=== PATIENT | female | born 2000 | race Caucasian/White ===

== ENCOUNTER 2021-08-10 10:17 | Emergency (ER) | payer MEDICAID, SELFPAY ==
[2021-08-10 10:19] VITALS: BP 126/100; PULSE 92; RESP 20; TEMP 37.1; O2SAT 97; BMI 39.4
--- NOTE | 2021-08-10 10:59 | XR_ITS ---
WS: [id number] Chest with right rib detail, 08/10/2021 Clinical Data: fall, pain Comparison: PA and lateral chest, 04/25/2011. Findings: The lungs show no nodules, masses, or effusions. The heart is normal. No pneumonia or pneumothorax is seen. The ribs are intact. No rib fractures seen. No subcutaneous emphysema is present. XR/XR ribs RT mn 3V w CXR1V [id number] Impression: Negative chest with right rib detail.
--- NOTE | 2021-08-10 10:59 | XR_ITS ---
WS: [id number] Right foot, 3 views, 08/10/2021 Clinical Data: trauma Comparison: None. Findings: No fractures or dislocations are seen. No bone destruction or erosion is noted. The joint spaces and soft tissues are normal. XR/XR foot RT min 3V* [id number] Impression: Negative right foot.
--- NOTE | 2021-08-10 10:59 | XR_ITS ---
WS: [id number] Right ankle, 3 views, 08/10/2021 Clinical Data: trauma Comparison: None. Findings: No fractures or dislocations are seen. The ankle mortise is normal. The talus and calcaneus are unrem arkable. There is soft tissue swelling over the lateral malleolus. XR/XR ankle RT min 3V* [id number] Impression: 1. Soft tissue swelling over right lateral malleolus. 2. Negative for fracture or dislocation.
--- NOTE | 2021-08-10 11:00 | ED_ITS ---
HPI - Fall General: Chief Complaint: Extremity Injury, Lower Stated Complaint: FALL/ ANKLE PAIN/ RIB PAIN Time Seen by Provider: 08/10/21 10:27 Source: patient Mode of arrival: EMS Limitations: no limitations History of Present Illness: Patient is a 21-year-old female who presents to ED today with a main complaint of a right ankle/foot injury. Patient tells me just prior to arrival she was going down a set of camper steps when she slipped and fell. Patient states she twisted her right ankle when she fell. She also thinks maybe she landed onto her right ribs because she is having some mild pain to her right lower ribs-worse with deep inhalation. She is not complaining of shortness of breath or difficulty breathing. Patient has not been ambulatory since the fall secondary to pain in her right ankle. She has no other injuries or complaints at this time. Patient denies striking her head or LOC. No neck or back pain. MD complaint: fall Onset (ago): hour(s) Fall from: down stairs (#) Fall witnessed: yes, by family Place fall occurred: home Loss of consciousness: None Prolonged down time: no Symptoms prior to fall: none Context: tripped/slipped Location of injury - extremities: Right: ankle and foot Associated symptoms-after fall: Reports chest pain (R rib pain); Denies abdominal pain, headache(s), lightheadedness or neck pain Review of Systems Eyes: Denies: change in vision or blurry vision Card: Reports: chest pain (R rib pain); Denies: palpitations, irregular heart rhythm, edema, lightheadedness, syncope or pre-syncope Resp: Denies: dyspnea GI: Denies: abdominal pain Musc: Reports: joint pain (R ankle/foot), joint swelling (R ankle/foot) and limited range of motion; Denies: neck pain or back pain Neuro: Denies: headache(s), numbness in extremities, weakness in extremities, sensory changes or dizziness PENDING SALE TO [facility] ED PFSH: Medical History (Updated 08/10/21 @ 11:46 by ALESSANDRA Camacho) Anxiety and depression Family History Mother Diabetes Father Diabetes Social History Alcohol intake: never Lives independently: Yes Household members: family Housing: House Marital status: Single History of recent travel: No Female Reproductive History: Para: 0 Physical Exam Const: COMMON NORMALS: no acute distress, patient oriented x3, no limitations and alert GENERAL APPEARANCE: cooperative NUTRITIONAL APPEARANCE: obese ORIENTATION/CONSCIOUSNESS: Yes awake, Yes oriented to person, Yes oriented to place and Yes oriented to time HENMT: COMMON NORMALS: normocephalic and atraumatic HEAD & SCALP: normal to inspection, normocephalic and atraumatic FACE & SINUS: normal facial exam Eye: GENERAL EYE: appearance normal, both eyes and all related structures Neck/C-Spine: COMMON NORMALS: full ROM CERVICAL SPINE: Yes cervical ROM normal, No pain with cervical ROM, No Cervical spine tenderness, No step off deformity and No Paracervical muscle tenderness Chest: COMMONS NORMALS: normal inspection of the chest OTHER: mild pain to R lower anteriolateral ribs; no crepitus; normal breath sounds Resp: COMMON NORMALS: normal respiratory effort and clear to auscultation bi laterally EFFORT & INSPECTION: Yes able to speak in complete sentences AUSCULTATION: clear to auscultation bilaterally Cardio: COMMON NORMALS: regular rate and regular rhythm RATE: regular rate RHYTHM: regular rhythm GI: COMMON NORMALS: Normal to inspection, nondistended, normoactive bowel sounds present, Soft to palpation, non-tender, No hepatosplenomegaly present and no masses PALPATION: Yes Soft to palpation and Yes No hepatosplenomegaly present Back/Pelvis: COMMON NORMALS: thoracic and lumbar spine normal to inspection, no thoracic nor lumbar tenderness and thoraco-lumbar ROM normal Extremity: GENERAL: Yes normal exam except as noted RIGHT LOWER EXTREMITY: Yes foot & digits (main tenderness and swelling located to lateral ankle) Right ankle: Yes neurovascular exam (normal) and Yes foot & digits (swelling noted to dorsal lateral foot) Right foot and digits: Yes neurovascular exam (normal) Neuro: BOLIVAR COMA SCALE: document GCS findings [place] coma scale eye opening: Spontaneous [place] coma scale verbal response: Orientated [place] coma scale motor response: Obey commands [place] coma scale total score: 15 COMMON NORMALS: patient oriented x3, moves all extremities, no focal motor deficits and no sensory deficits noted SENSORIUM/ORIENTATION: Yes alert, Yes oriented to person, Yes oriented to place and Yes oriented to time Skin: COMMON NORMALS: no rashes or lesions noted GENERAL SKIN EXAM: no rashes or lesions noted TRAUMA: no lacerations or abrasions Course Vital Signs: Vital signs: Vital Signs Temperature 98.7 F 08/10/21 10:19 Pulse Rate 92 08/10/21 10:19 Respiratory Rate 20 H 08/10/21 10:19 Blood Pressure 126/100 08/10/21 10:19 Pulse Oximetry 97 08/10/21 10:19 MDM - Fall Medical Decision Making XR R foot/ankle and CXR/R ribs negative. Recommend RICE therapy. Will give KIARA/crutches with instructions for weight bearing as tolerated. Follow up with PCP in 1-2 weeks for continued pain. Lab Data Radiology Impressions Ankle X-Ray 08/10/21 10:59 Impression: 1. Soft tissue swelling over right lateral malleolus. 2. Negative for fracture or dislocation. Foot X-Ray 08/10/21 10:59 Impression: Negative right foot. Ribs X-Ray 08/10/21 10:59 Impression: Negative chest with right rib detail. Discharge Plan Discharge Patient Disposition: Home Clinical Impression: Right ankle sprain Qualifiers: Encounter type: initial encounter Involved ligament of ankle: unspecified ligament Qualified Code(s): S93.401A - Sprain of unspecified ligament of right ankle, initial encounter Contusion of rib on right side Qualifiers: Encounter type: initial encounter Qualified Code(s): S20.211A - Contusion of right front wall of thorax, initial encounter Condition: Stable Prescriptions: No Action ketoconazole 2 % cream 1 applic TOPICAL BID 14 Days Qty: 15 2RF norethindrone-ethin estradiol 1-35 mg-mcg tablet 1 tab PO QDAY 28 Days Qty: 28 11RF citalopram [Celexa] 10 mg tablet 10 mg PO .hs 30 Days Qty: 30 5RF Discharge Orders: Discharge ED (Routine); Ordered 08/10/21 Ordered By: Alanna Florian Referrals: Marilyn Tierney, [facility] [employer] [facility] [Primary Care Provider] - Patient Instructions: Ankle Sprain (ED), RICE Therapy Coding Level of Care Code ED Supervisor Force Adjustment for Chg Fwd Exam Comprehensive
[2021-08-10 11:56] VITALS: PULSE 86; O2SAT 97
== END 2021-08-10 12:50 | disposition home or self-care (01) ==
PROVIDERS: Emergency Provider Physician Assistant; PCP Nurse Practitioner
DX: S20.211A Contusion of right front wall of thorax, initial encounter (principal); S93.401A Sprain of unspecified ligament of right ankle, initial encounter; X50.1XXA Overexertion from prolonged static or awkward postures, initial encounter
CPT/HCPCS: 71101; 73610; 73630; 99283; E0114

== ENCOUNTER → 2021-12-13 13:42 | Outpatient (BNVA) | payer MEDICAID, SELFPAY | PROVIDERS: PCP Nurse Practitioner; Visit Provider Nurse Practitioner | DX: Z11.3 Encounter for screening for infections with a predominantly sexual mode of transmission (principal); Z12.4 Encounter for screening for malignant neoplasm of cervix | CPT/HCPCS: 87491; 87591; 88175 ==

== ENCOUNTER → 2024-09-18 08:46 | Outpatient (BNVA) | payer MEDICAID, SELFPAY | PROVIDERS: PCP Nurse Practitioner; Visit Provider Clinical Nurse Specialist Adult Health | DX: F41.9 Anxiety disorder, unspecified (principal); F32.9 Major depressive disorder, single episode, unspecified; Z30.41 Encounter for surveillance of contraceptive pills; F17.210 Nicotine dependence, cigarettes, uncomplicated; E66.9 Obesity, unspecified | CPT/HCPCS: 80053; 84443; 85025 ==

== ENCOUNTER → 2025-03-23 08:16 | Outpatient (BNVA) | payer MEDICAID, SELFPAY | PROVIDERS: PCP Clinical Nurse Specialist Adult Health; Visit Provider Clinical Nurse Specialist Adult Health | DX: R73.9 Hyperglycemia, unspecified (principal); E66.9 Obesity, unspecified | CPT/HCPCS: 80053; 82306; 83036; 85025 ==